=== PATIENT | female | born 1995 | race Caucasian/White ===

== ENCOUNTER 2023-08-29 13:04 | Emergency (ER) | payer MEDICARE, MEDICAID ==
[~2023-08-29] VITALS: Ht 152.4 cm; Wt 60.7 kg
[2023-08-29] MEDS ORDERED: BACIOIN15 TOP (14:41)
[2023-08-29] MEDS ORDERED: IBUP-1454 PO (14:41)
[2023-08-29] MEDS ORDERED: CEPH500C PO (14:41)
[2023-08-29] MEDS ORDERED: ACE3T PO (14:41)
[2023-08-29 15:44] VITALS: BP 146/65; PULSE 76; RESP 18; TEMP 98; O2SAT 95
== END 2023-08-29 15:46 | disposition home or self-care (01) ==
LOC: ER 13:04
DX: L03.011 Cellulitis of right finger (principal)
CPT/HCPCS: 10060; 87205